=== PATIENT | female | born 1945 | race Asian ===

== ENCOUNTER 2017-05-15 21:17 | Emergency (ER) | payer OTHER ==
[2017-05-15 21:35] VITALS: BP 136/79; PULSE 92; TEMP 99; BMI 22.3
--- NOTE | 2017-05-15 23:26 | PDOC ---
History of Present Illness - History of Present Illness Initial Comments: 05/15/17 23:43 Patient is a 72 F, with no significant PMHx, who presents with headache, cough, and nasal congestion for 1 week. Her sister, whom she lives with presents with similar cold-like symptoms. Denies nausea, vomit, diarrhea. Denies chest pain, or shortness of breath. PCP: Art Dunlap. <Ember Hopkins - Last Filed: 05/15/17 23:51> <Marika Arauz - Last Filed: 05/16/17 00:23> - General Chief Complaint: Cold Symptoms Stated Complaint: HEADACHE, COUGHING Time Seen by Provider: 05/15/17 23:26 Past History <Ember Hopkins - Last Filed: 05/15/17 23:51> - Past Medical History COPD: No HTN: Yes - Surgical History Cholecystectomy: Yes - Suicide/Smoking/Psychosocial Hx Smoking History: Never smoked Have you smoked in the past 12 months: No Information on smoking cessation initiated: No Hx Alcohol Use: No Drug/Substance Use Hx: No Substance Use Type: None <Marika Arauz - Last Filed: 05/16/17 00:23> - Past Medical History Allergies/Adverse Reactions: Allergies Allergy/AdvReac Type Severity Reaction Status Date / Time No Known Allergies Allergy Verified 05/15/17 21:32 Review of Systems - Review of Systems Comments:: 05/15/17 23:45 CONSTITUTIONAL: Absent: fever, no chills, no fatigue EYES: Absent: visual changes ENT: Present: nasal congestion Absent: ear pain, sore throat CARDIOVASCULAR: Absent: chest pain, no palpitations RESPIRATORY: Present: cough Absent: no SOB GI: Absent: abdominal pain, no nausea, no vomiting, no constipation, no diarrhea GENITOURINARY: Absent: dysuria, no frequency, no hematuria MUSCULOSKELETAL: Absent: back pain, no arthralgia, no myalgia SKIN: Absent: rash NEURO: Present: headache <Ember Hopkins - Last Filed: 05/15/17 23:51> *Physical Exam - Vital Signs Last Vital Signs Temp Pulse Resp BP Pulse Ox 99.0 F 92 H 20 136/79 97 05/15/17 21:32 05/15/17 21:32 05/15/17 21:32 05/15/17 21:32 02/11/18 21:32 - Physical Exam Comments: 05/15/17 23:46 GENERAL: Well-appearing, well-nourished. No apparent distress. HEENT: Normocephalic, atraumatic. PERRL, EOM intact. CARDIOVASCULAR: Normal S1, S2. Regular rate and rhythm. PULMONARY: Clear to auscultation bilaterally. ABDOMEN: Soft, non-distended, non-tender. EXTREMITIES: Normal ROM in all four extremities. No gross deformities. SKIN: Warm, dry. No rash NEUROLOGICAL: No focal neurological deficits. <Ember Hopkins - Last Filed: 05/15/17 23:51> - Vital Signs Last Vital Signs Temp Pulse Resp BP Pulse Ox 99.0 F 92 H 20 136/79 97 05/15/17 21:32 05/15/17 21:32 05/15/17 21:32 05/15/17 21:32 05/15/17 21:32 <Marika Arauz - Last Filed: 05/16/17 00:23> Medical Decision Making - Medical Decision Making 05/16/17 00:15 72-year-old female presents with a history of fever, nasal congestion, cough for the past 3 days. She is not hypoxic, her lungs are clear, she is in no respiratory distress. Oropharynx is clear of exudates Patient states that she needs a work note Impression common cold/flu like symptoms <Marika Arauz - Last Filed: 05/16/17 00:23> *DC/Admit/Observation/Transfer - Attestations Scribe Attestion: 05/15/17 23:48 Documentation prepared by Ember Hopkins, acting as nuclear medical technologist for Marika Arauz MD. <Ember Hopkins - Last Filed: 05/15/17 23:51> <Marika Arauz - Last Filed: 05/16/17 00:23> Diagnosis at time of Disposition: Cough, Nasal congestion, History of fever - Discharge Dispostion Disposition: HOME Condition at time of disposition: Stable - Referrals Referrals: Art Dunlap MD [Primary Care Provider] - - Patient Instructions Printed Discharge Instructions: DI for Viral Upper Respiratory Infection -- Adult Additional Instructions: please take tylenol or motrin for fever Keep hydrated Rest return if you develop any breathing difficulties or worsening symptoms - Post Discharge Activity Forms/Work/School Notes: Back to Work
== END 2017-05-16 00:40 | disposition home or self-care (01) ==
LOC: JERFT 21:17 → JER 21:17
DX: J06.9 Acute upper respiratory infection, unspecified (principal); B97.89 Other viral agents as the cause of diseases classified elsewhere
CPT/HCPCS: 99282-25